=== PATIENT | male | born 2000 | race Two or more races ===

== ENCOUNTER 2025-05-08 13:05 | Emergency (ER) | payer MEDICAID, OTHER ==
[~2025-05-08] VITALS: Ht 175.3 cm; Wt 77.5 kg
--- NOTE | 2025-05-08 15:56 | ED.PDOC ---
SOB-HPI HPI Comments 25 y/o M is BIBA for c/c of shortness of breath. Patient reports onset of breathing difficulty after receiving a steroid shot from a [facility] facility, earlier, today, after being evaluated for allergic reaction. Describes his "lung swelling." No relief with at-home inhaler use. Denial of any chest pain, cough, congestion, fever, chills, or further associated symptoms. Family member called the facility and stated the patient has a history of significant anxiety. Patient was tearful and emotional at time of evaluation. Vital signs were stable. Chief Complaint: Shortness of Breath Time Seen by MD: 15:00 Reviewed notes: Nurses Notes, Leveler Notes, Medications, Allergies Information Source: Patient, Friend, Emergency Med Personnel Mode of Arrival: EMS Severity: Moderate Timing: Hours Duration: Since onset PE Risk Factors: None History of: Anxiety, Hyperventilation Prehospital treatment: None Modifying Factors: Anxiety Associated Signs and Symptoms: Cough If cough with SOB: Non-Productive Past Medical History PAST MEDICAL HISTORY: Anxiety, Asthma Surgical History: Denies all surgeries Family History Family History: Unknown Social History Smoker: Non-Smoker Alcohol: Denies ETOH Use Drugs: Denies Drug Use Lives In: Home Constitutional: denies: chills, diaphoresis, fatigue, fever, malaise, sweats, weakness, others EENTM: denies: blurred vision, double vision, ear bleeding, ear discharge, ear drainage, ear pain, ear ringing, eye pain, eye redness, hearing loss, mouth pain, mouth swelling, nasal discharge, nose bleeding, nose congestion, nose pain, photophobia, tearing, throat pain, throat swelling, voice changes, others Respiratory: reports: shortness of breath; denies: cough, hemoptysis, orthopnea, SOB at rest, SOB with excertion, stridor, wheezing, others Cardiovascular: reports: chest pain (Pleuritic); denies: dizzy spells, diaphoresis, Dyspnea on exertion, edema, irregular heart beat, left arm pain, lightheadedness, palpitations, PND, syncope, others Gastrointestinal: denies: abdomen distended, abdominal pain, blood streaked bowels, constipated, diarrhea, dysphagia, difficulty swallowing, hematemesis, melena, nausea, poor appetite, poor fluid intake, rectal bleeding, rectal pain, vomiting, others Genitourinary: denies: burning, dysuria, flank pain, frequency, hematuria, incontinence, penile discharge, penile sore, pain, testicle pain, testicle swelling, urgency, others Neurological: denies: dizziness, fainting, headache, left sided numbness, left sided weakness, numbness, paresthesia, pre-existing deficit, right sided numbness, right sided weakness, seizure, speech problems, tingling, tremors, weakness, others Musculoskeletal: denies: back pain, gout, joint pain, joint swelling, muscle pain, muscle stiffness, neck pain, others Integumetry: denies: bruises, change in color, change in hair/nails, dryness, laceration, lesions, lumps, rash, wounds, others Allergic/Immunocompromised: denies: Difficulty Healing, Frequent Infections, Hives, Itching, others Hematologic/Lymphatic: denies: anemia, blood clots, easy bleeding, easy bruising, swollen glands, others Endocrine: denies: excessive hunger, excessive sweating, excessive thirst, excessive urination, flushing, intolerance to cold, intolerance to heat, unexplained weight gain, unexplained weight loss, others Psychiatric: reports: anxiety; denies: bipolar disorder, depression, hopeless, panic disorder, schizophrenia, sleepless, suicidal, others All Other Systems: Reviewed and Negative (Comprehensive review of systems are negative unless stated in HPI) Physical Exam General Appearance: Moderate Distress (Moderate distress due to shortness a breath concerns and what appears to be significant anxiety.), Normal HEENT: Normal ENT Inspection, Pharynx Normal, TMs Normal Neck: Full Range of Motion, Non-Tender, Normal, Normal Inspection Respiratory: Chest Non-Tender, Lungs Clear, No Accessory Muscle Use, No Respiratory Distress, Normal Breath Sounds, Other (Patient was tachypneic, but auscultation appeared to be unremarkable. No definitive rhonchi or wheezing.) Cardiovascular: No Edema, No JVD, No Murmur, No Gallop, Normal Peripheral Pulses, Regular Rate/Rhythm Breast Exam: Deferred Gastrointestinal: No Organomegaly, Non Tender, No Pulsatile Mass, Normal Bowel Sounds, Soft Genitalia: Deferred Pelvic: Deferred Rectal: Deferred Extremities: Normal inspection Neurologic: Alert Cerebellar Function: NOT DONE Reflexes: NOT DONE Skin: Dry, Normal Color, Warm Lymphatic: No Adenopathy Was a procedure done? Was a procedure done?: No Differential Dx Differential Diagnosis: Anxiety, Asthma, Bronchitis, Panic Attack, Pneumonia, Respiratory Distress, URI X-Ray, Labs, Meds, VS Vital Signs Date Time Temp Pulse Resp B/P (MAP) Pulse Ox O2 Delivery O2 Flow Rate FiO2 05/08/25 19:00 74 16 144/87 (106) 99 05/08/25 17:55 98.0 85 24 154/83 99 98.0 05/08/25 17:39 18 98 Room Air* 0 21 21 05/08/25 15:00 98.4 68 16 148/77 (100) 99 98.4 Lab Test 05/08/25 16:36 05/08/25 15:25 Range/Units Troponin I High Sensitivity 4 4 </=54 ng/L White Blood Count 11.4 H 4.4-10.8 10^3/uL Red Blood Count 4.80 4.5-5.90 10^6/uL Hemoglobin 15.3 13.5-17.5 g/dL Hematocrit 44.8 41.0-53.0 % Mean Corpuscular Volume 93.2 80.0-100.0 fL Mean Corpuscular Hemoglobin 31.8 28.0-32.0 pg Mean Corpuscular Hemoglobin Concent 34.1 32.0-36.0 g/dL Red Cell Distribution Width 13.4 11.8-14.3 % Platelet Count 290 140-450 10^3/uL Mean Platelet Volume 7.1 6.9-10.8 fL Neutrophils (%) (Auto) 92.9 H 37.0-80.0 % Lymphocytes (%) (Auto) 5.6 L 10.0-50.0 % Monocytes (%) (Auto) 0.8 0.0-12.0 % Eosinophils (%) (Auto) 0.3 0.0-7.0 % Basophils (%) (Auto) 0.4 0.0-2.0 % Neutrophils # (Auto) 10.6 H 1.6-8.6 10 ^3/uL Lymphocytes # (Auto) 0.6 0.4-5.4 10 ^3/uL Monocytes # (Auto) 0.1 0-1.3 10 ^3/uL Eosinophils # (Auto) 0 0-0.8 10 ^3/uL Basophils # (Auto) 0 0-0.2 10 ^3/uL Nucleated Red Blood Cells 0.0 % D-Dimer, Quantitative < 0.19 0.0-0.49 mg/L FEU Sodium Level 144 136-145 mmol/L Potassium Level 3.4 L 3.5-5.1 mmol/L Chloride Level 107 98-107 mmol/L Carbon Dioxide Level 25 20-31 mmol/L Anion Gap 12 5-15 Blood Urea Nitrogen 8 L 9-23 mg/dL Creatinine 0.98 0.700-1.30 mg/dL Glomerular Filtration Rate Calc 110 >90 mL/min BUN/Creatinine Ratio 8.2 L 10.0-20.0 Serum Glucose 89 74-106 mg/dL Calcium Level 9.6 8.7-10.4 mg/dL B-Type Natriuretic Peptide < 0 0-100 pg/mL Current Medications Medications (Trade) Dose Ordered Sig/Rich Route Start Time Stop Time Status Last Admin Alprazolam (Xanax Tablet) 0.5 mg ONCE ONCE PO 05/08/25 17:30 05/08/25 17:31 DC 05/08/25 19:15 Albuterol (Ventolin Medneb) 5 mg ONCE ONCE NEB 05/08/25 17:30 05/08/25 17:31 DC 05/08/25 17:40 Ipratropium [place] (Atrovent Medneb) 0.5 mg ONCE ONCE NEB 05/08/25 17:30 05/08/25 17:31 DC 05/08/25 17:39 X-Ray, Labs, Meds, VS Comment All studies performed in the ED were evaluated by me personally. All laboratories studies were unremarkable for any systemic concerns. CT angio of chest was unremarkable for any PE or intrapulmonary issues. Patient responded well to multiple medications. I believe the patient has significant anxiety that caused him shortness a breath concerns. Advised patient follow up with primary care for mental health referral and evaluation. Time of 1ST Reevaluation: 19:45 Reevaluation 1ST: Improved Consultation: PCP, Psychiatry Patient Education/Counseling: Diagnosis, Treatment, Need For Follow Up Family Education/Counseling: Diagnosis, Treatment, Need For Follow Up SEPSIS Sepsis Screen Recent Procedure: No On Antibiotic Therapy: No Respiratory Rate >20: No Heart Rate >90: No Temp<36 C (96.8 F) or >38.3 C: No SBP <90 or MAP <65 mmHG: No New Acute Mental Status Change: No Is the patient on CPAP, BIPAP,: No IV fluid challenge completed?: No Physician Orders Electrocardigram (05/08/25 15:13) Heplock Iv (05/08/25 ) Ct Angio Chest Contrast (05/08/25 16:17) Vital Signs Date Time Temp Pulse Resp B/P (MAP) Pulse Ox O2 Delivery O2 Flow Rate FiO2 05/08/25 19:00 74 16 144/87 (106) 99 05/08/25 17:55 98.0 85 24 154/83 99 98.0 05/08/25 17:39 18 98 Room Air* 0 21 21 05/08/25 15:00 98.4 68 16 148/77 (100) 99 98.4 Laboratory Tests Test 05/08/25 15:25 White Blood Count 11.4 10^3/uL (4.4-10.8) H Medications Medications Dose Ordered Sig/Rich Route Start Time Stop Time Status Last Admin Dose Admin Albuterol 5 mg ONCE ONCE NEB 05/08/25 17:30 05/08/25 17:31 DC 05/08/25 17:40 Alprazolam 0.5 mg ONCE ONCE PO 05/08/25 17:30 05/08/25 17:31 DC 05/08/25 19:15 Ipratropium [place] 0.5 mg ONCE ONCE NEB 05/08/25 17:30 05/08/25 17:31 DC 05/08/25 17:39 Departure 1 Departure Time of Disposition: 19:46 Impression: Primary Impression: Anxiety Additional Impression: Shortness of breath Disposition: 01 HOME / SELF CARE / HOMELESS Condition: Stable Additional Instructions: Advised patient utilize medication as needed for anxiety events and additionally, patient needs to follow up with the primary care provider for mental health referral and evaluation to help address his concerning anxiety issues. e-Prescriptions Alprazolam (Xanax) 0.5 Mg Tb 1 TAB PO BIDP PRN, #10 TAB Prov: BARBER BAILEY PAC 05/08/25 Discharged With: Self, Friend Critical Care Note Critical Care Time?: No Stability Stability form required: No Heart Score Heart Score: Heart Score Response (Comments) Value History N/A 0 EKG N/A 0 Age N/A 0 Risk Factors N/A 0 Troponin N/A 0 Total 0 I personally scribed for BARBER BAILEY PAC ([email or web address]) on 05/08/25 at 15:56. Electronically submitted by Fabricio Garza ([email or web address]). BARBER BAILEY PAC May 08, 2025 15:56
[2025-05-08 16:09] LABS: Hematocrit 44.8 % (41.0-53.0); Hemoglobin 15.3 g/dL (13.5-17.5); Mean Corpuscular Hemoglobin 31.8 pg (28.0-32.0); Mean Corpuscular Volume 93.2 fL (80.0-100.0); Nucleated Red Blood Cells % 0.0 %
[2025-05-08 16:18] LABS: Anion Gap 12 (5-15); Calcium 9.6 mg/dL (8.7-10.4); Carbon Dioxide 25 mmol/L (20-31); Sodium 144 mmol/L (136-145)
[2025-05-08 16:24] LABS: BUN/Creatinine Ratio 8.2 (10.0-20.0); Glucose 89 mg/dL (74-106)
[2025-05-08 16:27] LABS: Blood Urea Nitrogen 8 mg/dL (9-23); Chloride 107 mmol/L (98-107); Potassium 3.4 mmol/L (3.5-5.1)
[2025-05-08] MEDS: IPRATROPIUM BROM 0.5 MG/2.5ML INH SOL NEB ONE (17:39)
[2025-05-08] MEDS: ALBUTEROL SULF 2.5 MG/0.5ML(0.5%) NEB SOLN NEB ONE (17:40)
[2025-05-08 17:55] VITALS: TEMP 98
[2025-05-08 19:00] VITALS: BP 144/87; PULSE 74; RESP 16
[2025-05-08] MEDS: ALPRAZolam 0.5 MG TAB PO ONE (19:15)
--- NOTE | 2025-05-08 19:21 | DVH ---
EXAM: CT CT ANGIO CHEST CONTRAST HISTORY: PE; DYSPNEA TECHNIQUE: CT angiogram was performed. CT scans at this facility use dose modulation, iterative recon struction, and/or weight based dosing when appropriate to reduce radiation dose to as low as reasonab ly achievable. Coronal and sagittal reformations and maximum intensity projection images were created from the transaxial source data by the ultrasound technologist and workstation, as well as 3-D volume render ed images with MIPs. COMPARISON: None FINDINGS: [LOWER NECK]: Unremarkable [LYMPH NODES/MEDIASTINUM]: No abnormal lymph nodes by CT size criteria [CARDIOVASCULAR]: Normal cardiac size. No pericardial effusion. No aneurysmal dilatation of the great vessels. No significant coronary artery calcifications. [PULMONARY ARTERIES]: No pulmonary arterial filling defect. Normal caliber of the main pulmonary anirudh ry. No evidence of elevated right heart pressures. [UPPER ABDOMEN]: Unremarkable. [MUSCULOSKELETAL]: No acute fracture or aggressive focal osseous lesion. [CHEST WALL]: Mild bilateral gynecomastia. [LUNG PARENCHYMA/PLEURAL SPACE]: No consolidation, suspicious focal airspace opacity, or suspicious n odules. No pleural effusion or pneumothorax. IMPRESSION: 1. No CTA evidence of pulmonary embolism.
[2025-05-08] MEDS ORDERED: ALPR0.5T PO (19:47)
[2025-05-08 19:50] VITALS: O2SAT 100
[2025-05-08] MEDS: IOHEXOL 350 MG/ML 100ML IJ ONE (19:50)
[2025-05-09] MEDS ORDERED: ALPR0.5T PO (14:57)
== END 2025-05-08 19:59 | disposition home or self-care (01) ==
LOC: ER 13:05 → EDBD 13:05 → ER 19:59
DX: F41.9 Anxiety disorder, unspecified (principal); J45.909 Unspecified asthma, uncomplicated
CPT/HCPCS: 36415; 71275; 80048; 83880; 84484; 85025; 85379; 94640; 99285; Q9967